=== PATIENT | female | born 1960 | race Hispanic/Latino ===

== ENCOUNTER 2021-11-27 17:55 | Inpatient (IN) | payer OTHER, SELFPAY ==
[~2021-11-27 17:55] MED LIST: Iopamidol-370 76% 500 ML 1 ML ONE
[2021-11-27 18:24] LABS: Hemoglobin 6.7 g/dL (12.0-16.0); Mean Corpuscular HGB CONC 33.7 g/dL (32.0-36.0); Mean Corpuscular Hemoglobin 28.3 pg (27.0-31.0); Mean Corpuscular Volume 83.9 fL (78.0-98.0); Mean Platelet Volume 10.4 fL (7.4-10.4); Platelet Count 248 thou/uL (130-400); RBC Distribution Width 13.1 % (11.5-14.5); Red Blood Cell (RBC) Count 2.37 mill/uL (4.20-5.40); White Blood Cell (WBC) Count 30.4 thou/uL (4.8-10.8)
[2021-11-27] MEDS ORDERED: Ondansetron PF 4 MG/2 ML Vial ONE ×2 (18:24→21:19)
[2021-11-27 18:44] LABS: ALT (SGPT) Less than 7 U/L (8-55); AST (SGOT) 8 U/L (5-34); Albumin 3.8 g/dL (3.4-4.8); Alkaline Phosphatase 47 U/L (40-110); Anion Gap 13 mmol/L (10-20); BUN (Urea Nitrogen) 35 mg/dL (9.8-20.1); Bilirubin, Total 0.2 mg/dL (0.2-1.2); Calc. Creatinine Clearance 0 mL/min (70-130); Calcium 8.4 mg/dL (7.8-10.44); Carbon Dioxide 23 mmol/L (23-31); Chloride 104 mmol/L (98-107); Estimated GFR 102; Globulin 3.3 g/dL (2.4-3.5); Glucose 174 mg/dL (80-115); Lipase 14 U/L (8-78); Magnesium 1.7 mg/dL (1.6-2.6); Potassium 3.2 mmol/L (3.5-5.1); Protein, Total 7.1 g/dL (5.8-8.1); Sodium 137 mmol/L (136-145)
[2021-11-27] MEDS ORDERED: Ketorolac Tromethamine 30 MG/ML VIAL ONE (18:47)
[2021-11-27 18:48] LABS: Lymphocytes 8 % (21-51); MDiff Complete? YES; Monocytes 4 % (0-10); Neutrophil 86 % (42-75); Platelet Morphology Comment Appears Adequate; Polychromasia SLIGHT = 2-3 cells (100X) (0-2/hpf); Reactive Lymphocytes 2 % (0-10)
[2021-11-27] MEDS ORDERED: Piperacillin/Tazobactam 3.375 GM VIAL ONE (19:13)
[2021-11-27] MEDS ORDERED: Metoclopramide HCl 10 MG/2 ML VIAL ONE (19:38)
[2021-11-27] MEDS ORDERED: Electrolyte Replacement Protocol 1 EACH FS SCH (20:45)
[2021-11-27] MEDS ORDERED: Electrolyte Replacement Protocol 1 EACH FS PRN (21:00)
[2021-11-27] MEDS ORDERED: Acetaminophen 650 MG Suppository PR PRN (21:01)
[2021-11-27] MEDS ORDERED: Acetaminophen 325 MG TAB PO PRN (21:01)
[2021-11-27 21:12] LABS: Iron 37 ug/dL (50-170); Iron Binding Capacity, Total 304 mcg/dL (265-497)
[2021-11-27] MEDS: Sodium Chloride 0.9% 1,000 ML IV SCH (22:40)
[2021-11-27] MEDS: Pantoprazole 40 MG VIAL IVP SCH (23:45)
[2021-11-27] MEDS: Piperacillin/Tazobactam 3.375 GM in Sodium Chloride 0.9% 100 ML IVPB SCH (23:45)
[2021-11-28] MEDS ORDERED: Potassium Chloride 20 MEQ TAB PO SCH ×2 (00:45→08:00)
[2021-11-28] MEDS ORDERED: Magnesium 2 GM/50 ML(in water) 2 GM in Premix Bag 1 BAG IVPB SCH (00:45)
[2021-11-28 06:49] LABS: #Eosinphils 0.1 thou/uL (0.0-0.7); #Lymphocytes 3.5 thou/uL (1.20-3.40); #Monocytes 1.4 thou/uL (0.11-0.59); #Neutrophils 18.1 thou/uL (1.40-6.50); %Basophils 0.1 % (0.0-1.0); %Eosinophils 0.3 % (0.0-10.0); %Lymphocytes 15.1 % (21.0-51.0); %Monocytes 5.9 % (0.0-10.0); %Neutrophils 78.7 % (42.0-75.0); Hemoglobin 5.7 g/dL (12.0-16.0); Mean Corpuscular HGB CONC 33.5 g/dL (32.0-36.0); Mean Corpuscular Hemoglobin 28.4 pg (27.0-31.0); Mean Corpuscular Volume 84.8 fL (78.0-98.0); Mean Platelet Volume 9.8 fL (7.4-10.4); Platelet Count 155 thou/uL (130-400); RBC Distribution Width 13.1 % (11.5-14.5); Red Blood Cell (RBC) Count 2.01 mill/uL (4.20-5.40)
[2021-11-28 07:06] LABS: Anion Gap 8 mmol/L (10-20); BUN (Urea Nitrogen) 21 mg/dL (9.8-20.1); Calc. Creatinine Clearance 127 mL/min (70-130); Calcium 7.4 mg/dL (7.8-10.44); Carbon Dioxide 22 mmol/L (23-31); Chloride 109 mmol/L (98-107); Estimated GFR 104; Glucose 124 mg/dL (80-115); Potassium 3.3 mmol/L (3.5-5.1); Sodium 136 mmol/L (136-145)
[2021-11-28] MEDS: Ondansetron PF 4 MG/2 ML Vial IVP PRN ×2 (07:32→16:02)
[2021-11-28] MEDS: Piperacillin/Tazobactam 3.375 GM in Sodium Chloride 0.9% 100 ML IVPB SCH ×2 (08:13→16:02)
[2021-11-28] MEDS: Morphine 4 MG/ML VIAL SLOW IVP PRN ×3 (08:18→20:58)
[2021-11-28] MEDS: Sodium Chloride 0.9% 1,000 ML IV SCH ×2 (08:42→18:02)
[2021-11-28] MEDS: Pantoprazole 40 MG VIAL IVP SCH ×2 (09:26→20:54)
[2021-11-28 13:35] LABS: Hemoglobin 6.8 g/dL (12.0-16.0)
[2021-11-28] MEDS: Dicyclomine 10 MG CAP PO SCH ×2 (18:00→20:54)
[2021-11-28] MEDS: Ondansetron ODT 4 MG TAB PO PRN (21:27)
[2021-11-29] MEDS: Piperacillin/Tazobactam 3.375 GM in Sodium Chloride 0.9% 100 ML IVPB SCH ×4 (01:20→23:40)
[2021-11-29] MEDS: Morphine 4 MG/ML VIAL SLOW IVP PRN ×2 (02:01→22:31)
[2021-11-29 05:15] LABS: #Basophils 0.1 thou/uL (0.0-0.2); #Eosinphils 0.1 thou/uL (0.0-0.7); #Lymphocytes 3.1 thou/uL (1.20-3.40); #Monocytes 1.1 thou/uL (0.11-0.59); #Neutrophils 14.3 thou/uL (1.40-6.50); %Basophils 0.4 % (0.0-1.0); %Eosinophils 0.5 % (0.0-10.0); %Lymphocytes 16.9 % (21.0-51.0); %Monocytes 5.7 % (0.0-10.0); %Neutrophils 76.5 % (42.0-75.0); Hemoglobin 7.6 g/dL (12.0-16.0); Mean Corpuscular HGB CONC 34.4 g/dL (32.0-36.0); Mean Corpuscular Hemoglobin 30.4 pg (27.0-31.0); Mean Corpuscular Volume 88.1 fL (78.0-98.0); Mean Platelet Volume 9.5 fL (7.4-10.4); Platelet Count 136 thou/uL (130-400); RBC Distribution Width 14.4 % (11.5-14.5); White Blood Cell (WBC) Count 18.6 thou/uL (4.8-10.8)
[2021-11-29 05:20] LABS: Anion Gap 9 mmol/L (10-20); BUN (Urea Nitrogen) 6 mg/dL (9.8-20.1); Calc. Creatinine Clearance 129 mL/min (70-130); Calcium 7.7 mg/dL (7.8-10.44); Carbon Dioxide 23 mmol/L (23-31); Chloride 109 mmol/L (98-107); Estimated GFR 105; Glucose 88 mg/dL (80-115); Potassium 3.6 mmol/L (3.5-5.1); Sodium 137 mmol/L (136-145)
[2021-11-29] MEDS: Sodium Chloride 0.9% 1,000 ML IV SCH ×2 (05:39→12:21)
[2021-11-29] MEDS: Dicyclomine 10 MG CAP PO SCH ×4 (08:21→20:06)
[2021-11-29] MEDS: Pantoprazole 40 MG VIAL IVP SCH ×2 (08:31→20:06)
[2021-11-29] MEDS ORDERED: Fentanyl 100 MCG/2 ML VIAL ONE (10:22)
[2021-11-29] MEDS ORDERED: PROPOFOL 200 MG/20 ML VIAL ONE (10:31)
[2021-11-29] MEDS ORDERED: Morphine 2 MG/ML VIAL SLOW IVP PRN (14:28)
[2021-11-29] MEDS: Ondansetron PF 4 MG/2 ML Vial IVP PRN ×2 (18:01→22:32)
[2021-11-30] MEDS: Sodium Chloride 0.9% 1,000 ML IV SCH ×4 (01:06→20:11)
[2021-11-30] MEDS: Ondansetron ODT 4 MG TAB PO PRN (04:03)
[2021-11-30] MEDS: Morphine 4 MG/ML VIAL SLOW IVP PRN ×4 (04:03→22:25)
[2021-11-30 06:18] LABS: Anion Gap 9 mmol/L (10-20); BUN (Urea Nitrogen) 4 mg/dL (9.8-20.1); Calc. Creatinine Clearance 137 mL/min (70-130); Calcium 7.4 mg/dL (7.8-10.44); Carbon Dioxide 24 mmol/L (23-31); Chloride 108 mmol/L (98-107); Estimated GFR 106; Glucose 91 mg/dL (80-115); Potassium 3.3 mmol/L (3.5-5.1); Sodium 138 mmol/L (136-145)
[2021-11-30] MEDS ORDERED: Potassium Chloride 20 MEQ TAB PO SCH (06:45)
[2021-11-30 07:12] LABS: Band 2 % (5-11); Hemoglobin 7.5 g/dL (12.0-16.0); Lymphocytes 8 % (21-51); MDiff Complete? YES; Mean Corpuscular HGB CONC 33.9 g/dL (32.0-36.0); Mean Corpuscular Hemoglobin 30.4 pg (27.0-31.0); Mean Corpuscular Volume 89.9 fL (78.0-98.0); Mean Platelet Volume 9.9 fL (7.4-10.4); Monocytes 4 % (0-10); Neutrophil 86 % (42-75); Platelet Count 131 thou/uL (130-400); RBC Distribution Width 14.9 % (11.5-14.5); Red Blood Cell (RBC) Count 2.48 mill/uL (4.20-5.40); White Blood Cell (WBC) Count 21.3 thou/uL (4.8-10.8)
[2021-11-30] MEDS: Piperacillin/Tazobactam 3.375 GM in Sodium Chloride 0.9% 100 ML IVPB SCH ×2 (07:47→16:24)
[2021-11-30] MEDS: Pantoprazole 40 MG VIAL IVP SCH ×2 (08:00→20:11)
[2021-11-30] MEDS: Dicyclomine 10 MG CAP PO SCH ×4 (08:01→20:11)
[2021-11-30 13:19] VITALS: BMI 26.4
[2021-12-01] MEDS: Piperacillin/Tazobactam 3.375 GM in Sodium Chloride 0.9% 100 ML IVPB SCH ×3 (00:34→16:18)
[2021-12-01] MEDS: Morphine 4 MG/ML VIAL SLOW IVP PRN ×4 (05:18→21:00)
[2021-12-01] MEDS: Ondansetron PF 4 MG/2 ML Vial IVP PRN ×4 (05:20→21:00)
[2021-12-01] MEDS: Dicyclomine 10 MG CAP PO SCH ×4 (07:56→21:00)
[2021-12-01] MEDS: Pantoprazole 40 MG VIAL IVP SCH ×2 (07:57→21:02)
[2021-12-01 08:12] LABS: #Lymphocytes 2.1 thou/uL (1.20-3.40); #Monocytes 0.7 thou/uL (0.11-0.59); #Neutrophils 11.2 thou/uL (1.40-6.50); %Basophils 0.1 % (0.0-1.0); %Eosinophils 0.3 % (0.0-10.0); %Lymphocytes 14.8 % (21.0-51.0); %Monocytes 5.1 % (0.0-10.0); %Neutrophils 79.8 % (42.0-75.0); Hemoglobin 8.2 g/dL (12.0-16.0); Mean Corpuscular HGB CONC 32.6 g/dL (32.0-36.0); Mean Corpuscular Hemoglobin 29.8 pg (27.0-31.0); Mean Corpuscular Volume 91.4 fL (78.0-98.0); Mean Platelet Volume 9.9 fL (7.4-10.4); Platelet Count 136 thou/uL (130-400); RBC Distribution Width 14.8 % (11.5-14.5); Red Blood Cell (RBC) Count 2.76 mill/uL (4.20-5.40)
[2021-12-01 08:31] LABS: ALT (SGPT) Less than 7 U/L (8-55); AST (SGOT) 9 U/L (5-34); Albumin 3.3 g/dL (3.4-4.8); Alkaline Phosphatase 49 U/L (40-110); Anion Gap 12 mmol/L (10-20); BUN (Urea Nitrogen) 4 mg/dL (9.8-20.1); Bilirubin, Total 0.3 mg/dL (0.2-1.2); Calc. Creatinine Clearance 132 mL/min (70-130); Carbon Dioxide 23 mmol/L (23-31); Chloride 107 mmol/L (98-107); Estimated GFR 105; Glucose 111 mg/dL (80-115); Potassium 3.8 mmol/L (3.5-5.1); Protein, Total 6.3 g/dL (5.8-8.1); Sodium 138 mmol/L (136-145)
[2021-12-01] MEDS: Sodium Chloride 0.9% 1,000 ML IV SCH (16:18)
[2021-12-01 19:38] LABS: Amphetamine Not Detected (NotDetected); Barbiturates Screen Not Detected (NotDetected); Benzodiazepine Screen Not Detected (NotDetected); Cocaine Metabolite Screen Not Detected (NotDetected); Methadone Not Detected (NotDetected); Methamphetamine Not Detected (NotDetected); Opiate Screen Detected (NotDetected); Oxycodone Screen Not Detected (NotDetected); Phencyclidine (PCP) Not Detected (NotDetected); THC/Cannabinoid Screen Not Detected (NotDetected); Tricyclic Screen Not Detected (NotDetected)
[2021-12-02] MEDS: Morphine 4 MG/ML VIAL SLOW IVP PRN ×6 (01:08→22:21)
[2021-12-02] MEDS: Sodium Chloride 0.9% 1,000 ML IV SCH (01:18)
[2021-12-02] MEDS: Piperacillin/Tazobactam 3.375 GM in Sodium Chloride 0.9% 100 ML IVPB SCH (01:19)
[2021-12-02 06:39] LABS: #Lymphocytes 1.8 thou/uL (1.20-3.40); #Monocytes 0.8 thou/uL (0.11-0.59); #Neutrophils 9.8 thou/uL (1.40-6.50); %Basophils 0.2 % (0.0-1.0); %Eosinophils 0.1 % (0.0-10.0); %Lymphocytes 14.6 % (21.0-51.0); %Neutrophils 79.1 % (42.0-75.0); Hemoglobin 7.8 g/dL (12.0-16.0); Mean Corpuscular HGB CONC 31.7 g/dL (32.0-36.0); Mean Corpuscular Hemoglobin 29.1 pg (27.0-31.0); Mean Corpuscular Volume 91.7 fL (78.0-98.0); Platelet Count 138 thou/uL (130-400); RBC Distribution Width 14.9 % (11.5-14.5); Red Blood Cell (RBC) Count 2.68 mill/uL (4.20-5.40); White Blood Cell (WBC) Count 12.4 thou/uL (4.8-10.8)
[2021-12-02] MEDS: Ondansetron PF 4 MG/2 ML Vial IVP PRN ×3 (09:05→18:03)
[2021-12-02] MEDS: Amoxicillin/Potassium Clav 875 MG TAB PO SCH ×2 (09:05→20:51)
[2021-12-02] MEDS: Dicyclomine 10 MG CAP PO SCH ×4 (09:05→20:51)
[2021-12-03] MEDS: Morphine 4 MG/ML VIAL SLOW IVP PRN ×3 (02:05→10:03)
[2021-12-03] MEDS: Ondansetron PF 4 MG/2 ML Vial IVP PRN ×2 (06:04→10:03)
[2021-12-03 07:28] VITALS: BP 118/65; TEMP 98.1
[2021-12-03] MEDS: Amoxicillin/Potassium Clav 875 MG TAB PO SCH (07:30)
[2021-12-03] MEDS: Dicyclomine 10 MG CAP PO SCH (07:30)
== END 2021-12-03 12:00 | disposition home or self-care (01) | DRG 871 ==
LOC: ERS 17:55 → T4-B 20:38
PROVIDERS: ADMIT Student in an Organized Health Care Education/Training Program; ATTEND Internal Medicine
PROC: 30233N1 Transfusion of Nonautologous Red Blood Cells into Peripheral Vein, Percutaneous Approach (ICD-10-PCS; 2021-11-27)
PROC: 3E03329 Introduction of Other Anti-infective into Peripheral Vein, Percutaneous Approach (ICD-10-PCS; 2021-11-27)
PROC: 0W3P8ZZ Control Bleeding in Gastrointestinal Tract, Via Natural or Artificial Opening Endoscopic (ICD-10-PCS; principal; 2021-11-29)
DX: A41.9 Sepsis, unspecified organism (principal); K25.4 Chronic or unspecified gastric ulcer with hemorrhage; D62 Acute posthemorrhagic anemia; E86.0 Dehydration; M43.17 Spondylolisthesis, lumbosacral region; E87.6 Hypokalemia; K57.90 Diverticulosis of intestine, part unspecified, without perforation or abscess without bleeding; Z20.822 Contact with and (suspected) exposure to COVID-19; Z79.899 Other long term (current) drug therapy
CPT/HCPCS: 36415; 36430; 71045; 74177; 80048; 80053; 80306; 82728; 83540; 83550; 83605; 83690; 83735; 84484; 85025; 86850; 86900; 86901; 87040; 93005; 96361; 96365; 96366; 96368; 96375; 96376; C1776; C9113; J1885; J2270; J2405; J2543; J2704; J2765; J3010; J3475; J3490; J7050; P9016; Q0162; Q9967; U0003; U0005

== ENCOUNTER 2021-12-26 06:37 | Inpatient (IN) | payer OTHER ==
[2021-12-26] MEDS ORDERED: Ondansetron PF 4 MG/2 ML Vial ONE ×2 (07:29→11:00)
[2021-12-26] MEDS ORDERED: Morphine 4 MG/ML VIAL ONE (07:29)
[2021-12-26 07:41] LABS: Hemoglobin 8.2 g/dL (12.0-16.0); Mean Corpuscular HGB CONC 31.3 g/dL (32.0-36.0); Mean Corpuscular Volume 79.9 fl (78.0-98.0); Mean Platelet Volume 9.2 fL (7.4-10.4); Platelet Count 246 thou/uL (130-400); RBC Distribution Width 18.5 % (11.5-14.5); Red Blood Cell (RBC) Count 3.27 mill/uL (4.20-5.40); White Blood Cell (WBC) Count 25.5 thou/uL (4.8-10.8)
[2021-12-26 07:54] LABS: ALT (SGPT) Less than 7 U/L (8-55); AST (SGOT) 10 U/L (5-34); Alkaline Phosphatase 74 U/L (40-110); Anion Gap 11 mmol/L (10-20); BUN (Urea Nitrogen) 9 mg/dL (9.8-20.1); Bilirubin, Total 0.3 mg/dL (0.2-1.2); CK (CPK) 25 U/L (29-168); Calc. Creatinine Clearance 0 mL/min (70-130); Calcium 8.5 mg/dL (7.8-10.44); Carbon Dioxide 26 mmol/L (23-31); Chloride 101 mmol/L (98-107); Estimated GFR 104; Globulin 3.5 g/dL (2.4-3.5); Glucose 116 mg/dL (80-115); Lipase 10 U/L (8-78); Potassium 3.8 mmol/L (3.5-5.1); Protein, Total 7.5 g/dL (5.8-8.1); Sodium 134 mmol/L (136-145)
[2021-12-26 08:11] LABS: Band 1 % (5-11); Hypochromia SLIGHT = 6-15 cells (100X) (0-5/hpf); Lymphocytes 6 % (21-51); MDiff Complete? YES; Monocytes 2 % (0-10); Neutrophil 91 % (42-75); Ovalocytes SLIGHT = 2-5 cells (100X) (0-1/hpf); Platelet Morphology Comment Appears Adequate; Polychromasia SLIGHT = 2-3 cells (100X) (0-2/hpf); Stomatocytes SLIGHT = 2-5 cells (100X) (0-1/hpf)
[2021-12-26] MEDS ORDERED: Iopamidol-370 76% 500 ML 1 ML ONE (09:27)
[2021-12-26] MEDS ORDERED: Piperacillin/Tazobactam 3.375 GM VIAL ONE (11:00)
[2021-12-26] MEDS ORDERED: Ondansetron ODT 4 MG TAB PO PRN (12:10)
[2021-12-26] MEDS ORDERED: Acetaminophen 650 MG Suppository PR PRN (12:10)
[2021-12-26] MEDS ORDERED: metroNIDAZOLE 500 MG in Premix Bag 1 BAG IVPB SCH (14:00)
[2021-12-26] MEDS ORDERED: Acetaminophen 325 MG TAB ONE (14:49)
[2021-12-26] MEDS: Acetaminophen 325 MG TAB PO PRN ×2 (14:52→19:54)
[2021-12-26 15:38] VITALS: BMI 27.3
[2021-12-26] MEDS ORDERED: FLU VACC QS2022-23(6MOS UP)/PF 60 MCG/0.5 ML SYRINGE IM ONE (15:45)
[2021-12-26] MEDS: Lactated Ringer's 1,000 ML IV SCH (15:47)
[2021-12-26] MEDS: Piperacillin/Tazobactam 3.375 GM in Sodium Chloride 0.9% 100 ML IVPB SCH (15:47)
[2021-12-26] MEDS ORDERED: Lidocaine 2% Viscous Solution 10 ML, Aluminum & Magnesium Hydroxide 30 ML SSW SCH (17:15)
[2021-12-26] MEDS: Ondansetron PF 4 MG/2 ML Vial IVP PRN (17:22)
[2021-12-26] MEDS: Pantoprazole 40 MG VIAL IVP SCH (19:53)
[2021-12-27] MEDS: Acetaminophen 325 MG TAB PO PRN ×2 (00:04→11:55)
[2021-12-27] MEDS: Piperacillin/Tazobactam 3.375 GM in Sodium Chloride 0.9% 100 ML IVPB SCH ×3 (00:04→16:23)
[2021-12-27] MEDS: Lactated Ringer's 1,000 ML IV SCH ×2 (00:07→11:58)
[2021-12-27] MEDS: Ondansetron PF 4 MG/2 ML Vial IVP PRN ×3 (06:12→19:34)
[2021-12-27 06:59] LABS: #Lymphocytes 1.8 thou/uL (1.20-3.40); #Monocytes 0.9 thou/uL (0.11-0.59); #Neutrophils 14.7 thou/uL (1.40-6.50); %Basophils 0.3 % (0.0-1.0); %Eosinophils 0.1 % (0.0-10.0); %Lymphocytes 10.3 % (21.0-51.0); %Monocytes 5.1 % (0.0-10.0); %Neutrophils 84.3 % (42.0-75.0); Hemoglobin 7.9 g/dL (12.0-16.0); Mean Corpuscular HGB CONC 30.9 g/dL (32.0-36.0); Mean Corpuscular Hemoglobin 25.2 pg (27.0-31.0); Mean Corpuscular Volume 81.4 fl (78.0-98.0); Mean Platelet Volume 9.1 fL (7.4-10.4); Platelet Count 231 thou/uL (130-400); Red Blood Cell (RBC) Count 3.13 mill/uL (4.20-5.40); White Blood Cell (WBC) Count 17.5 thou/uL (4.8-10.8)
[2021-12-27 07:26] LABS: ALT (SGPT) Less than 7 U/L (8-55); AST (SGOT) 7 U/L (5-34); Albumin 3.6 g/dL (3.4-4.8); Alkaline Phosphatase 59 U/L (40-110); Anion Gap 10 mmol/L (10-20); BUN (Urea Nitrogen) 6 mg/dL (9.8-20.1); Bilirubin, Total 0.4 mg/dL (0.2-1.2); Calc. Creatinine Clearance 129 mL/min (70-130); Calcium 8.6 mg/dL (7.8-10.44); Carbon Dioxide 26 mmol/L (23-31); Chloride 103 mmol/L (98-107); Estimated GFR 105; Globulin 3.6 g/dL (2.4-3.5); Glucose 95 mg/dL (80-115); Potassium 3.6 mmol/L (3.5-5.1); Protein, Total 7.2 g/dL (5.8-8.1); Sodium 135 mmol/L (136-145)
[2021-12-27] MEDS: Pantoprazole 40 MG VIAL IVP SCH ×3 (08:27→19:38)
[2021-12-27] MEDS ORDERED: Iron, Sodium Ferric Gluconate 125 MG in Sodium Chloride 0.9% 100 ML IVPB SCH (10:15)
[2021-12-27] MEDS: Multivitamin W/ Minerals 1 TAB PO SCH (11:58)
[2021-12-27] MEDS: Ferrous Sulfate 325 MG TAB PO SCH (11:58)
[2021-12-27] MEDS: HYDROcodone/Acetaminophen 10/325 mg Tablet PO PRN ×2 (13:29→19:32)
[2021-12-28] MEDS: Ondansetron PF 4 MG/2 ML Vial IVP PRN (00:54)
[2021-12-28] MEDS: HYDROcodone/Acetaminophen 10/325 mg Tablet PO PRN ×2 (00:54→07:06)
[2021-12-28] MEDS: Piperacillin/Tazobactam 3.375 GM in Sodium Chloride 0.9% 100 ML IVPB SCH ×2 (00:59→08:04)
[2021-12-28 06:41] LABS: #Basophils 0.1 thou/uL (0.0-0.2); #Neutrophils 9.7 thou/uL (1.40-6.50); %Basophils 0.6 % (0.0-1.0); %Eosinophils 0.3 % (0.0-10.0); %Lymphocytes 15.7 % (21.0-51.0); %Monocytes 7.7 % (0.0-10.0); %Neutrophils 75.7 % (42.0-75.0); Hemoglobin 7.8 g/dL (12.0-16.0); Mean Corpuscular HGB CONC 31.3 g/dL (32.0-36.0); Mean Corpuscular Hemoglobin 25.5 pg (27.0-31.0); Mean Corpuscular Volume 81.4 fl (78.0-98.0); Mean Platelet Volume 9.5 fL (7.4-10.4); Platelet Count 242 thou/uL (130-400); RBC Distribution Width 17.9 % (11.5-14.5); Red Blood Cell (RBC) Count 3.08 mill/uL (4.20-5.40); White Blood Cell (WBC) Count 12.8 thou/uL (4.8-10.8)
[2021-12-28 07:04] LABS: ALT (SGPT) 7 U/L (8-55); AST (SGOT) 7 U/L (5-34); Albumin 3.7 g/dL (3.4-4.8); Alkaline Phosphatase 64 U/L (40-110); Anion Gap 11 mmol/L (10-20); BUN (Urea Nitrogen) 7 mg/dL (9.8-20.1); Bilirubin, Total 0.3 mg/dL (0.2-1.2); Calc. Creatinine Clearance 114 mL/min (70-130); Calcium 8.3 mg/dL (7.8-10.44); Carbon Dioxide 27 mmol/L (23-31); Chloride 105 mmol/L (98-107); Estimated GFR 102; Globulin 3.5 g/dL (2.4-3.5); Glucose 121 mg/dL (80-115); Potassium 3.6 mmol/L (3.5-5.1); Protein, Total 7.2 g/dL (5.8-8.1); Sodium 139 mmol/L (136-145)
[2021-12-28] MEDS: Multivitamin W/ Minerals 1 TAB PO SCH (08:04)
[2021-12-28] MEDS: Ferrous Sulfate 325 MG TAB PO SCH (08:04)
[2021-12-28 11:30] VITALS: BP 130/82; TEMP 97.8
== END 2021-12-28 11:30 | disposition home or self-care (01) | DRG 446 ==
LOC: ERS 06:37 → ERHOLD 11:00 → INTOOBSV 11:00 → T4-A 15:29 → OBSVTOIN 12-28 10:33
PROVIDERS: ADMIT Family Medicine; ATTEND Family Medicine
DX: K80.10 Calculus of gallbladder with chronic cholecystitis without obstruction (principal); K52.9 Noninfective gastroenteritis and colitis, unspecified; D72.829 Elevated white blood cell count, unspecified; D64.9 Anemia, unspecified; M43.16 Spondylolisthesis, lumbar region; Z20.822 Contact with and (suspected) exposure to COVID-19; Z79.899 Other long term (current) drug therapy; Z83.3 Family history of diabetes mellitus; Z98.890 Other specified postprocedural states; Z87.11 Personal history of peptic ulcer disease; R53.1 Weakness
CPT/HCPCS: 36415; 74177; 78227; 80053; 82550; 83690; 84484; 85025; 87040; 90471; 90686; 93005; 96365; 96366; 96367; 96375; 96376; A9537; C9113; G0008; G0378; J2270; J2405; J2543; J2916; J3490; J7120; Q0162; Q9967; U0003; U0005

== ENCOUNTER 2022-03-17 12:40 | Emergency (ER) | payer OTHER ==
[2022-03-17] MEDS ORDERED: Ketorolac Tromethamine 30 MG/ML VIAL ONE (13:32)
[2022-03-17] MEDS ORDERED: Ondansetron PF 4 MG/2 ML Vial ONE ×2 (13:32→15:26)
[2022-03-17 13:40] LABS: #Lymphocytes 1.6 thou/uL (1.20-3.40); #Monocytes 0.6 thou/uL (0.11-0.59); %Basophils 0.1 % (0.0-1.0); %Eosinophils 0.1 % (0.0-10.0); %Neutrophils 81.9 % (42.0-75.0); Hemoglobin 8.3 g/dL (12.0-16.0); Mean Corpuscular Hemoglobin 22.3 pg (27.0-31.0); Mean Corpuscular Volume 67.5 fl (78.0-98.0); Mean Platelet Volume 10.6 fL (7.4-10.4); Platelet Count 247 10x3/uL (130-400); RBC Distribution Width 15.9 % (11.5-14.5); Red Blood Cell (RBC) Count 3.74 mill/uL (4.20-5.40); White Blood Cell (WBC) Count 12.2 10x3/uL (4.8-10.8)
[2022-03-17 13:49] LABS: ALT (SGPT) Less than 7 U/L (8-55); AST (SGOT) 11 U/L (5-34); Albumin 3.8 g/dL (3.4-4.8); Alkaline Phosphatase 60 U/L (40-110); Anion Gap 11 mmol/L (10-20); BUN (Urea Nitrogen) 8 mg/dL (9.8-20.1); Bilirubin, Total 0.3 mg/dL (0.2-1.2); Calc. Creatinine Clearance 0 mL/min (70-130); Calcium 8.6 mg/dL (7.8-10.44); Carbon Dioxide 25 mmol/L (23-31); Chloride 103 mmol/L (98-107); Estimated GFR 102; Globulin 4.2 g/dL (2.4-3.5); Glucose 95 mg/dL (80-115); Lipase 12 U/L (8-78); Potassium 3.8 mmol/L (3.5-5.1); Sodium 135 mmol/L (136-145)
[2022-03-17 15:16] LABS: Bilirubin Negative (Negative); Blood, Urine Negative (Negative); Clarity Clear (Clear); Glucose, Urine (Dipstick) Normal (Negative); Ketone, Urine Negative (Negative); Leukocyte Negative Leu/uL (Negative); Nitrite Negative (Negative); Protein, Urine (Dipstick) 20 mg/dL (Neg-Trace); Specific Gravity, Urine 1.021 (1.002-1.036); Urobilinogen Normal mg/dL (Less than 2); pH, Urine 6.5 (5.0-9.0)
== END 2022-03-17 16:10 | disposition home or self-care (01) ==
LOC: ERS 12:40
DX: R11.10 Vomiting, unspecified (principal); D72.829 Elevated white blood cell count, unspecified
CPT/HCPCS: 36415; 74177; 80053; 81003; 83690; 84484; 85025; 93005; 96374; 96375; 96376; J1885; J2405; Q9967

== ENCOUNTER 2022-05-13 12:37 | Emergency (ER) | payer OTHER ==
[2022-05-13] MEDS ORDERED: Cyclobenzaprine 10 MG TAB ONE (13:44)
[2022-05-13] MEDS ORDERED: Ketorolac Tromethamine 30 MG/ML VIAL ONE (13:49)
== END 2022-05-13 15:02 | disposition home or self-care (01) ==
LOC: ERS 12:37
DX: S20.229A Contusion of unspecified back wall of thorax, initial encounter (principal); M25.561 Pain in right knee; W20.8XXA Other cause of strike by thrown, projected or falling object, initial encounter
CPT/HCPCS: 72100; 96372; J1885

== ENCOUNTER 2022-06-12 15:31 | Inpatient (IN) | payer OTHER ==
[~2022-06-12 15:31] MED LIST changes: -Iopamidol-370 76% 500 ML 1 ML ONE; +Iopamidol-370 76% 500 ML MDV (1 ML CHARGE) ONE
[2022-06-12 16:29] LABS: #Lymphocytes 1.7 thou/uL (1.20-3.40); #Monocytes 0.5 thou/uL (0.11-0.59); #Neutrophils 6.2 thou/uL (1.40-6.50); %Basophils 0.2 % (0.0-1.0); %Lymphocytes 20.3 % (21.0-51.0); %Monocytes 6.3 % (0.0-10.0); %Neutrophils 73.2 % (42.0-75.0); Hemoglobin 6.3 g/dL (12.0-16.0); Mean Corpuscular HGB CONC 30.2 g/dL (32.0-36.0); Mean Platelet Volume 9.9 fL (7.4-10.4); Platelet Count 296 10x3/uL (130-400); RBC Distribution Width 15.7 % (11.5-14.5); Red Blood Cell (RBC) Count 3.31 mill/uL (4.20-5.40); White Blood Cell (WBC) Count 8.5 10x3/uL (4.8-10.8)
[2022-06-12 16:49] LABS: ALT (SGPT) Less than 7 U/L (8-55); AST (SGOT) 9 U/L (5-34); Alkaline Phosphatase 67 U/L (40-110); Anion Gap 10 mmol/L (10-20); Anisocytosis SLIGHT = 6-15 cells (100X) (0-5/hpf); BUN (Urea Nitrogen) 6 mg/dL (9.8-20.1); Bilirubin, Total 0.3 mg/dL (0.2-1.2); Calc. Creatinine Clearance 0 mL/min (70-130); Calcium 8.4 mg/dL (7.8-10.44); Carbon Dioxide 24 mmol/L (23-31); Chloride 110 mmol/L (98-107); Estimated GFR 102; Globulin 3.4 g/dL (2.4-3.5); Glucose 96 mg/dL (80-115); Hypochromia SLIGHT = 6-15 cells (100X) (0-5/hpf); MDiff Complete? YES; Microcytosis SLIGHT = 6-15 cells (100X) (0-5/hpf); Ovalocytes SLIGHT = 2-5 cells (100X) (0-1/hpf); Platelet Morphology Comment Appears Adequate; Polychromasia SLIGHT = 2-3 cells (100X) (0-2/hpf); Potassium 3.8 mmol/L (3.5-5.1); Protein, Total 7.4 g/dL (5.8-8.1); Reflex for Review?? YES; Sodium 140 mmol/L (136-145)
[2022-06-12] MEDS ORDERED: Cyclobenzaprine 10 MG TAB ONE (16:51)
[2022-06-12] MEDS ORDERED: Pantoprazole 40 MG VIAL ONE (17:07)
[2022-06-12] MEDS ORDERED: Morphine 4 MG/ML VIAL ONE (17:07)
[2022-06-12] MEDS ORDERED: Pantoprazole 80 MG, Admixture Fee 1 EACH in Sodium Chloride 0.9% 100 ML IVPB SCH (17:15)
[2022-06-12] MEDS ORDERED: Acetaminophen 325 MG TAB PO PRN (19:37)
[2022-06-12] MEDS ORDERED: Ondansetron ODT 4 MG TAB PO PRN (19:37)
[2022-06-12] MEDS ORDERED: Ondansetron PF 4 MG/2 ML Vial IVP PRN (19:37)
[2022-06-12 20:03] VITALS: BMI 26.1
[2022-06-12] MEDS ORDERED: Lidocaine 4% Patch TD PRN (20:24)
[2022-06-12] MEDS: Morphine 2 MG/ML VIAL SLOW IVP PRN (20:59)
[2022-06-12 22:24] LABS: Hemoglobin 7.4 g/dL (12.0-16.0)
[2022-06-13] MEDS: Morphine 2 MG/ML VIAL SLOW IVP PRN ×6 (02:24→23:57)
[2022-06-13 06:17] LABS: #Lymphocytes 2.1 thou/uL (1.20-3.40); #Monocytes 0.7 thou/uL (0.11-0.59); #Neutrophils 7.3 thou/uL (1.40-6.50); %Basophils 0.5 % (0.0-1.0); %Eosinophils 0.1 % (0.0-10.0); %Lymphocytes 20.9 % (21.0-51.0); %Monocytes 6.7 % (0.0-10.0); %Neutrophils 71.8 % (42.0-75.0); Mean Corpuscular HGB CONC 30.6 g/dL (32.0-36.0); Mean Corpuscular Hemoglobin 20.2 pg (27.0-31.0); Mean Corpuscular Volume 65.8 fl (78.0-98.0); Mean Platelet Volume 10.3 fL (7.4-10.4); Platelet Count 255 10x3/uL (130-400); RBC Distribution Width 17.3 % (11.5-14.5); Red Blood Cell (RBC) Count 3.49 mill/uL (4.20-5.40); White Blood Cell (WBC) Count 10.1 10x3/uL (4.8-10.8)
[2022-06-13 06:28] LABS: Anion Gap 11 mmol/L (10-20); BUN (Urea Nitrogen) 7 mg/dL (9.8-20.1); Calc. Creatinine Clearance 115 mL/min (70-130); Calcium 8.5 mg/dL (7.8-10.44); Carbon Dioxide 22 mmol/L (23-31); Chloride 109 mmol/L (98-107); Estimated GFR 103; Glucose 90 mg/dL (80-115); Potassium 3.1 mmol/L (3.5-5.1); Sodium 139 mmol/L (136-145)
[2022-06-13 06:29] LABS: Iron 11 ug/dL (50-170); Iron Binding Capacity, Total 321 mcg/dL (265-497); Transferrin, Serum 257 mg/dL (173-360)
[2022-06-13] MEDS ORDERED: Electrolyte Replacement Protocol 1 EACH IVPB SCH (10:11)
[2022-06-13] MEDS ORDERED: Magnesium 2 GM/50 ML(in water) 2 GM in Premix Bag 1 BAG IVPB SCH (11:15)
[2022-06-13] MEDS: Potassium Chloride 20 MEQ in Premix Bag 1 BAG IVPB SCH ×2 (13:13→14:52)
[2022-06-13] MEDS ORDERED: Potassium Bicarbonate/Cit Ac 20 MEQ TAB PO SCH (14:30)
[2022-06-13] MEDS ORDERED: GoLYTELY 4,000 ml Bottle PO SCH (17:00)
[2022-06-13] MEDS: Pantoprazole 40 MG VIAL IVP SCH (19:40)
[2022-06-14] MEDS: Morphine 2 MG/ML VIAL SLOW IVP PRN ×3 (04:28→13:09)
[2022-06-14 05:33] LABS: #Monocytes 0.8 thou/uL (0.11-0.59); #Neutrophils 7.6 thou/uL (1.40-6.50); %Basophils 0.4 % (0.0-1.0); %Eosinophils 0.1 % (0.0-10.0); %Lymphocytes 18.9 % (21.0-51.0); %Monocytes 7.5 % (0.0-10.0); %Neutrophils 73.1 % (42.0-75.0); Mean Corpuscular HGB CONC 30.5 g/dL (32.0-36.0); Mean Corpuscular Hemoglobin 20.7 pg (27.0-31.0); Mean Platelet Volume 9.9 fL (7.4-10.4); Platelet Count 273 10x3/uL (130-400); RBC Distribution Width 18.4 % (11.5-14.5); Red Blood Cell (RBC) Count 3.84 mill/uL (4.20-5.40); White Blood Cell (WBC) Count 10.5 10x3/uL (4.8-10.8)
[2022-06-14 05:55] LABS: Anion Gap 10 mmol/L (10-20); BUN (Urea Nitrogen) 4 mg/dL (9.8-20.1); Calc. Creatinine Clearance 113 mL/min (70-130); Calcium 8.6 mg/dL (7.8-10.44); Carbon Dioxide 26 mmol/L (23-31); Chloride 106 mmol/L (98-107); Estimated GFR 102; Glucose 90 mg/dL (80-115); Potassium 3.4 mmol/L (3.5-5.1); Sodium 139 mmol/L (136-145)
[2022-06-14] MEDS ORDERED: Potassium Chloride 20 MEQ in Premix Bag 1 BAG IVPB SCH (08:00)
[2022-06-14] MEDS ORDERED: Potassium Bicarbonate/Cit Ac 20 MEQ TAB PO SCH (08:30)
[2022-06-14] MEDS: Pantoprazole 40 MG VIAL IVP SCH (08:41)
[2022-06-14] MEDS ORDERED: PROPOFOL 200 MG/20 ML VIAL ONE (09:21)
[2022-06-14] MEDS ORDERED: Lidocaine 1% PF 5 ML VIAL ONE (09:21)
[2022-06-14] MEDS ORDERED: HYDROmorphone 2 MG/ML VIAL SLOW IVP PRN (09:51)
[2022-06-14] MEDS ORDERED: Morphine Sulfate 2 MG/ML SYRINGE SLOW IVP PRN (09:51)
[2022-06-14] MEDS ORDERED: Ondansetron HCl/PF 4 MG/2 ML Vial IVP PRN (09:51)
[2022-06-14] MEDS ORDERED: Promethazine HCl 25 MG/ML VIAL IM PRN (09:51)
[2022-06-14] MEDS ORDERED: Meperidine HCl/PF 25 MG/ML VIAL SLOW IVP PRN (09:51)
[2022-06-14 10:57] VITALS: BP 139/67; TEMP 97.3
== END 2022-06-14 15:30 | disposition home or self-care (01) | DRG 378 ==
LOC: ERS 15:31 → MSONC 18:58
PROVIDERS: ADMIT Internal Medicine; ATTEND Internal Medicine
PROC: 30233N1 Transfusion of Nonautologous Red Blood Cells into Peripheral Vein, Percutaneous Approach (ICD-10-PCS; principal; 2022-06-12)
PROC: 0DB58ZX Excision of Esophagus, Via Natural or Artificial Opening Endoscopic, Diagnostic (ICD-10-PCS; 2022-06-14)
PROC: 0DB78ZX Excision of Stomach, Pylorus, Via Natural or Artificial Opening Endoscopic, Diagnostic (ICD-10-PCS; 2022-06-14)
PROC: 0DJD8ZZ Inspection of Lower Intestinal Tract, Via Natural or Artificial Opening Endoscopic (ICD-10-PCS; 2022-06-14)
DX: K25.6 Chronic or unspecified gastric ulcer with both hemorrhage and perforation (principal); N13.30 Unspecified hydronephrosis; D50.0 Iron deficiency anemia secondary to blood loss (chronic); K57.91 Diverticulosis of intestine, part unspecified, without perforation or abscess with bleeding; D64.9 Anemia, unspecified; K25.9 Gastric ulcer, unspecified as acute or chronic, without hemorrhage or perforation; E87.6 Hypokalemia; M54.9 Dorsalgia, unspecified; G89.29 Other chronic pain; Z79.899 Other long term (current) drug therapy
CPT/HCPCS: 36415; 36430; 71046; 74177; 80048; 80053; 82728; 83540; 83550; 83690; 83735; 84466; 84484; 85025; 85060; 86850; 86900; 86901; 88305; 88342; 93005; 96365; 96375; C9113; J2270; J2272; J2405; J2704; J3475; J3480; J3490; P9016; Q9967